=== PATIENT | male | born 1970 | race Caucasian/White ===

== ENCOUNTER 2016-07-07 15:02 | Emergency (ER) | payer OTHER ==
[~2016-07-07] VITALS: Ht 177.8 cm; Wt 7.3 kg
[~2016-07-07 15:02] MED LIST: LORA-302 PO; LORA1TAB PO; LORA2TAB PO; ONDA8TAB10 PO
[2016-07-07 15:26] VITALS: BP 144/100; PULSE 110; RESP 15; O2SAT 97
== END 2016-07-07 18:54 | disposition left against medical advice (07) ==
LOC: SED 15:02
DX: Z53.21 Procedure and treatment not carried out due to patient leaving prior to being seen by health care provider (principal)

== ENCOUNTER 2016-07-07 19:59 | Emergency (ER) | payer OTHER | END 2016-07-07 20:45 | disposition left against medical advice (07) | LOC: SED 19:59 | DX: F19.239 Other psychoactive substance dependence with withdrawal, unspecified (principal); Z53.21 Procedure and treatment not carried out due to patient leaving prior to being seen by health care provider ==